=== PATIENT | male | born 1995 | race Asian ===

== ENCOUNTER 2016-07-08 11:53 | Inpatient (IN) | payer SELFPAY ==
[~2016-07-08] VITALS: Ht 182.9 cm; Wt 79.1 kg
[2016-07-08 12:17] LABS: BASOPHILS % (AUTO) 0.5 % (0.0-2.0); EOSINOPHILS % (AUTO) 1.3 % (1.0-6.0); HEMATOCRIT 45.7 % (41-53); HEMOGLOBIN 15.2 g/dL (13.5-17.5); LYMPHOCYTES # (AUTO) 1.1 K/uL (1.0-4.8); LYMPHOCYTES % (AUTO) 27.4 % (22.0-44.0); MEAN CORPUSCULAR HEMOGLOBIN 29.9 pg (26.0-34.0); MEAN CORPUSCULAR HGB CONC 33.2 G/dL (31.0-37.0); MEAN CORPUSCULAR VOLUME 90 fL (80-100); MONOCYTES # (AUTO) 0.3 K/uL (0.1-1.0); MONOCYTES % (AUTO) 7.6 % (2.0-9.0); NEUTROPHILS # (AUTO) 2.6 K/uL (1.8-7.7); NEUTROPHILS % (AUTO) 63.2 % (40.0-70.0); PLATELET COUNT (AUTO) 265 K/uL (150-450); RED BLOOD CELL COUNT(AUTO) 5.07 MIL/uL (4.50-5.90); RED CELL DISTRIBUTION WIDTH 13.2 % (11.5-14.5); WHITE BLOOD COUNT (AUTO) 4.1 K/uL (4.5-11.0)
[2016-07-08 12:27] LABS: ANION GAP 9 mmol/L (8-16); CALCIUM, TOTAL 8.5 mg/dL (8.8-10.5); CARBON DIOXIDE 25 mmol/L (22-29); CHLORIDE 102 mmol/L (98-107); CREATININE 1.13 mg/dL (0.60-1.30); GLOMERULAR FILTR. RATE CALC > 60 mL/min (>60); POTASSIUM 3.7 mmol/L (3.5-5.1); SODIUM SERUM 136 mmol/L (136-145); UREA NITROGEN, BLOOD 13 mg/dL (7-18)
[2016-07-08 12:33] LABS: ALANINE AMINOTRANSFERASE 33 U/L (12-78); ASPARTATE AMINOTRANSFERASE 24 U/L (15-37); BILIRUBIN,TOTAL 0.5 mg/dL (0.1-1.0); TOTAL PROTEIN, SERUM 7.2 g/dL (6.4-8.2)
[2016-07-08] MEDS ORDERED: LORazepam 2 MG TABLET PO PRN (14:15)
[2016-07-08] MEDS ORDERED: HALOPERIDOL 5 MG TABLET PO PRN (14:15)
[2016-07-08] MEDS ORDERED: ZOLPIDEM TARTRATE 10 MG TABLET PO PRN (14:15)
[2016-07-08 16:17] VITALS: BP 127/76
[2016-07-08 18:58] LABS: APPEARANCE,URINE CLEAR (CLEAR); GLUCOSE, URINE (UA) NEGATIVE (NEGATIVE); KETONES,URINE NEGATIVE (NEGATIVE); LEUKOCYTE ESTERASE ,URINE NEGATIVE (NEGATIVE); OCCULT BLOOD,URINE NEGATIVE (NEGATIVE); PROTEIN,URINE NEGATIVE (NEGATIVE)
[2016-07-08 18:59] LABS: ADD UA MICROSCOPIC NO
[2016-07-09 08:08] VITALS: BP 123/94
[2016-07-09] MEDS ORDERED: ESCITALOPRAM OXALATE 10 MG TABLET PO SCH ×2 (10:00)
[2016-07-09] MEDS ORDERED: ESCI10TA PO (10:25)
== END 2016-07-09 13:55 | disposition home or self-care (01) | DRG 881 ==
LOC: EEVIPCON 11:55 → EMS 11:55 → 3EI 15:05
PROVIDERS: ADMIT Psychiatry & Neurology Child & Adolescent Psychiatry; ATTEND Psychiatry & Neurology Child & Adolescent Psychiatry
DX: F32.9 Major depressive disorder, single episode, unspecified (principal); Z79.899 Other long term (current) drug therapy; F17.200 Nicotine dependence, unspecified, uncomplicated
CPT/HCPCS: 99285; 99406; G0480

== ENCOUNTER 2017-04-22 20:31 | Inpatient (IN) | payer BC ==
[~2017-04-22] VITALS: Ht 182.9 cm; Wt 81.8 kg
[~2017-04-22 20:31] MED LIST: ESCI10TA PO
[2017-04-22] MEDS ORDERED: BUPR100SR PO (20:39)
[2017-04-22 21:17] LABS: BASOPHILS % (AUTO) 0.4 % (0.0-2.0); EOSINOPHILS % (AUTO) 1.7 % (1.0-6.0); HEMOGLOBIN 15.6 g/dL (13.5-17.5); LYMPHOCYTES # (AUTO) 1.5 K/uL (1.0-4.8); LYMPHOCYTES % (AUTO) 24.6 % (22.0-44.0); MEAN CORPUSCULAR HEMOGLOBIN 30.8 pg (26.0-34.0); MEAN CORPUSCULAR HGB CONC 33.8 G/dL (31.0-37.0); MEAN CORPUSCULAR VOLUME 91 fL (80-100); MONOCYTES # (AUTO) 0.4 K/uL (0.1-1.0); MONOCYTES % (AUTO) 7.6 % (2.0-9.0); NEUTROPHILS # (AUTO) 3.9 K/uL (1.8-7.7); NEUTROPHILS % (AUTO) 65.7 % (40.0-70.0); PLATELET COUNT (AUTO) 278 K/uL (150-450); RED BLOOD CELL COUNT(AUTO) 5.05 MIL/uL (4.50-5.90); RED CELL DISTRIBUTION WIDTH 13.7 % (11.5-14.5)
[2017-04-22 21:33] LABS: ANION GAP 8 mmol/L (8-16); CALCIUM, TOTAL 8.9 mg/dL (8.8-10.5); CARBON DIOXIDE 27 mmol/L (22-29); CHLORIDE 102 mmol/L (98-107); CREATININE 1.23 mg/dL (0.60-1.30); GLOMERULAR FILTR. RATE CALC > 60 mL/min (>60); GLUCOSE,RANDOM 87 mg/dL (70-110); POTASSIUM 4.2 mmol/L (3.5-5.1); SODIUM SERUM 137 mmol/L (136-145); UREA NITROGEN, BLOOD 14 mg/dL (7-18)
[2017-04-22 21:40] LABS: AMPHET/METH SCREEN,URINE NEGATIVE (NEGATIVE); BARBITURATE SCREEN, URINE NEGATIVE (NEGATIVE); BENZODIAZEPINES SCREEN,URINE NEGATIVE (NEGATIVE); CANNABINOID SCREEN,URINE NEGATIVE (NEGATIVE); COCAINE SCREEN,URINE NEGATIVE (NEGATIVE); METHADONE SCREEN, URINE NEGATIVE (NEGATIVE); OPIATE SCREEN,URINE NEGATIVE (NEGATIVE)
[2017-04-22 21:43] LABS: PHENCYCLIDINE SCREEN,URINE NEGATIVE (NEGATIVE)
[2017-04-22 21:46] LABS: ALANINE AMINOTRANSFERASE 52 U/L (12-78); ALKALINE PHOSPHATASE 72 U/L (46-116); ASPARTATE AMINOTRANSFERASE 23 U/L (15-37); BILIRUBIN,TOTAL 0.5 mg/dL (0.1-1.0); TOTAL PROTEIN, SERUM 7.6 g/dL (6.4-8.2)
[2017-04-22] MEDS ORDERED: MAG HYDROX/AL HYDROX/SIMETH ES 30 ML SUSPENSION UDCUP PO PRN (23:30)
[2017-04-22] MEDS ORDERED: ACETAMINOPHEN 325 MG TABLET PO PRN (23:30)
[2017-04-22] MEDS ORDERED: HALOPERIDOL 5 MG TABLET PO PRN (23:30)
[2017-04-22] MEDS ORDERED: LORazepam 2 MG TABLET PO PRN (23:30)
[2017-04-22] MEDS ORDERED: MAGNESIUM HYDROXIDE SUSPENSION 30 ML UDCUP PO PRN (23:30)
[2017-04-23 07:58] LABS: CHOL/HDL RATIO 4.2 (4.2-7.3)
[2017-04-23] MEDS ORDERED: BUPR300T54 PO (11:52)
[2017-04-23 12:01] VITALS: BP 110/68
[2017-04-23] MEDS ORDERED: BUPR-93 PO (12:23)
[2017-04-23] MEDS ORDERED: INFLUENZA VIRUS VACCINE QVS 2017-18 (3YR+)/PF 60 MCG/0.5 ML SYRINGE IM ONE (13:30)
[2017-04-23 13:43] VITALS: BP 110/68
[2017-04-23 16:14] VITALS: BP 119/69
[2017-04-23 17:50] VITALS: BP 126/73
[2017-04-23] MEDS ORDERED: IBUPROFEN 400 MG TABLET PO PRN (20:30)
[2017-04-23] MEDS ORDERED: ACETAMINOPHEN 325 MG TABLET PO PRN (20:30)
[2017-04-23] MEDS: ZOLPIDEM TARTRATE 10 MG TABLET PO PRN (20:44)
[2017-04-24 00:52] VITALS: BP 111/56
[2017-04-24 06:13] VITALS: BP 111/60
[2017-04-24 08:00] VITALS: BP 118/67
[2017-04-24] MEDS: ESCITALOPRAM OXALATE 20 MG TABLET PO SCH (08:12)
[2017-04-24] MEDS: BuPROPion HCL XL 150 MG ER TABLET PO SCH (08:12)
[2017-04-24 08:25] LABS: HEMOGLOBIN A1C 4.9 % (4.5-6.2)
[2017-04-24 08:36] VITALS: BP 118/67
[2017-04-24 08:38] LABS: CHOL/HDL RATIO 3.8 (4.2-7.3); THYROID STIMULATING HORMONE 1.55 uIU/mL (0.36-3.74)
[2017-04-24 16:09] VITALS: BP 139/67
[2017-04-24 16:50] VITALS: BP 139/67
[2017-04-24] MEDS ORDERED: ACETAMINOPHEN 325 MG TABLET PO PRN (20:15)
[2017-04-24] MEDS ORDERED: IBUPROFEN 400 MG TABLET PO PRN (20:15)
[2017-04-24] MEDS: ZOLPIDEM TARTRATE 10 MG TABLET PO PRN (21:56)
[2017-04-25 07:00] VITALS: BP 102/79
[2017-04-25 08:15] VITALS: BP 110/68
[2017-04-25] MEDS: BuPROPion HCL XL 150 MG ER TABLET PO SCH (08:38)
[2017-04-25] MEDS: ESCITALOPRAM OXALATE 20 MG TABLET PO SCH (08:38)
== END 2017-04-25 16:39 | disposition home or self-care (01) | DRG 885 ==
LOC: EMS 20:32 → B2X 04-23 10:34
PROVIDERS: ADMIT Psychiatry & Neurology Psychiatry; ATTEND Psychiatry & Neurology Psychiatry
DX: F33.2 Major depressive disorder, recurrent severe without psychotic features (principal); R45.851 Suicidal ideations; F41.9 Anxiety disorder, unspecified; F19.10 Other psychoactive substance abuse, uncomplicated; F10.129 Alcohol abuse with intoxication, unspecified; Z79.899 Other long term (current) drug therapy; Z81.8 Family history of other mental and behavioral disorders
CPT/HCPCS: 83036; 84443; 99285; G0480